=== PATIENT | male | born 1950 | race Two or more races ===

== ENCOUNTER → 2021-08-11 16:00 | Outpatient (CLI) | payer OTHER | END | disposition home or self-care (01) | LOC: PPH VACUNA 16:00 | PROVIDERS: ATTEND Emergency Medicine Pediatric Emergency Medicine | DX: Z23 Encounter for immunization (principal) ==

== ENCOUNTER 2021-08-28 06:00 | Day surgery (SDC) | payer OTHER | END 2021-08-28 09:50 | disposition home or self-care (01) | LOC: AMB-ENDOS 06:00 | PROVIDERS: ATTEND Surgery | DX: D12.5 Benign neoplasm of sigmoid colon (principal); K62.1 Rectal polyp ==